=== PATIENT | female | born 1955 | race African-American/Black ===

== ENCOUNTER 2017-10-16 23:21 | Emergency (ER) | payer SELFPAY ==
[~2017-10-16] VITALS: Ht 165.1 cm; Wt 86.2 kg
[2017-10-16] MEDS ORDERED: IPRATRPIUM/ALBUTEROL 0.5/2.5MG 3 ML NEBU. ONE (23:50)
[2017-10-17 00:14] LABS: BASO # 0.1 x10^3/uL (0.0-0.2); BASO % 2 % (0-3); EOS % 3 % (0-3); HEMATOCRIT 43.6 % (36.0-47.0); HEMOGLOBIN 13.6 g/dL (12.0-15.5); LYMPH # 2.4 x10^3/uL (1.0-4.8); LYMPH % 55 % (24-48); MEAN CORPUSCULAR HEMOGLOBIN 25 pg (25-35); MEAN CORPUSCULAR HGB CONC 31 g/dL (31-37); MEAN CORPUSCULAR VOLUME 81 fL (79-100); MONO % 11 % (0-9); NEUT % 30 % (31-73); PLATELET COUNT 237 x10^3/uL (140-400); RED CELL DISTRIBUTION WIDTH 14.7 % (11.5-14.5); WHITE BLOOD COUNT 4.4 x10^3/uL (4.0-11.0)
[2017-10-17] MEDS ORDERED: IV NORMAL SALINE 1000ML BAG 1,000 ML IV SCH (00:15)
[2017-10-17] MEDS ORDERED: IPRATRPIUM/ALBUTEROL 0.5/2.5MG 3 ML NEBU. NEB ONE (00:15)
[2017-10-17] MEDS ORDERED: methylPREDNISolone SOD SUCC PF 125 MG/2 ML VIAL. IV ONE (00:15)
[2017-10-17] MEDS ORDERED: IV NORMAL SALINE 1000ML BAG 1,000 ML IV ONE (00:45)
[2017-10-17 00:54] LABS: CALCIUM 8.9 mg/dL (8.5-10.1); CREATININE 1.4 mg/dL (0.6-1.0); GFR 46.3; POTASSIUM 3.7 mmol/L (3.5-5.1)
[2017-10-17 02:00] VITALS: BP 125/61
[2017-10-17] MEDS ORDERED: AZIT250T6 PO (02:11)
[2017-10-17] MEDS ORDERED: PRED50TA PO (02:11)
[2017-10-17] MEDS ORDERED: BENZ100C PO (02:11)
--- NOTE | 2017-10-17 02:12 | PHYS DOC ---
Past Medical History Past Medical History: Arthritis, Asthma, COPD, Hypertension Past Surgical History: Hysterectomy, Tonsillectomy, Other Additional Past Surgical Histo: multiple bowel obstructions, liver biopsy Alcohol Use: Rarely Drug Use: None Adult General Chief Complaint Chief Complaint: SHORTNESS OF BREATH HPI HPI Patient is a 62 year old [f__sex] who presents with [] Review of Systems Review of Systems Constitutional: Denies fever or chills [] Eyes: Denies change in visual acuity, redness, or eye pain [] HENT: Denies nasal congestion or sore throat [] Respiratory: Denies cough or shortness of breath [] Cardiovascular: No additional information not addressed in HPI [] GI: Denies abdominal pain, nausea, vomiting, bloody stools or diarrhea [] : Denies dysuria or hematuria [] Musculoskeletal: Denies back pain or joint pain [] Integument: Denies rash or skin lesions [] Neurologic: Denies headache, focal weakness or sensory changes [] Endocrine: Denies polyuria or polydipsia [] All other systems were reviewed and found to be within normal limits, except as documented in this note. Current Medications Current Medications Current Medications Medications (Trade) Dose Ordered Sig/Trish Start Time Stop Time Status Last Admin Dose Admin Albuterol/ Ipratropium (Duoneb) 3 ml 1X ONCE 10/17/17 00:15 10/17/17 00:16 DC 10/17/17 00:11 3 ML Methylprednisolone Sodium Succinate (SOLU-Medrol 125MG VIAL) 125 mg 1X ONCE 10/17/17 00:15 10/17/17 00:16 DC 10/17/17 00:39 125 MG Sodium Chloride 1,000 ml @ 1,000 mls/hr 1X ONCE 10/17/17 00:45 10/17/17 01:44 DC 10/17/17 00:39 1,000 MLS/HR Allergies Allergies Allergies Coded Allergies Type Severity Reaction Last Updated Verified No Known Drug Allergies 01/22/14 No Physical Exam Physical Exam Constitutional: Well developed, well nourished, no acute distress, non-toxic appearance. [] HENT: Normocephalic, atraumatic, bilateral external ears normal, oropharynx moist, no oral exudates, nose normal. [] Eyes: PERRLA, EOMI, conjunctiva normal, no discharge. [] Neck: Normal range of motion, no tenderness, supple, no stridor. [] Cardiovascular:Heart rate regular rhythm, no murmur [] Lungs & Thorax: Bilateral breath sounds clear to auscultation [] Abdomen: Bowel sounds normal, soft, no tenderness, no masses, no pulsatile masses. [] Skin: Warm, dry, no erythema, no rash. [] Back: No tenderness, no CVA tenderness. [] Extremities: No tenderness, no cyanosis, no clubbing, ROM intact, no edema. [] Neurologic: Alert and oriented X 3, normal motor function, normal sensory function, no focal deficits noted. [] Psychologic: Affect normal, judgement normal, mood normal. [] Current Patient Data Vital Signs Vital Signs Date Time Temp Pulse Resp B/P (MAP) Pulse Ox O2 Delivery O2 Flow Rate FiO2 10/16/17 23:56 98 Room Air 10/16/17 23:23 98.3 69 18 119/74 (89) 98.3 Lab Values Laboratory Tests Test 10/16/17 23:32 10/17/17 00:29 White Blood Count 4.4 x10^3/uL (4.0-11.0) Red Blood Count 5.40 x10^6/uL (3.50-5.40) Hemoglobin 13.6 g/dL (12.0-15.5) Hematocrit 43.6 % (36.0-47.0) Mean Corpuscular Volume 81 fL (79-100) Mean Corpuscular Hemoglobin 25 pg (25-35) Mean Corpuscular Hemoglobin Concent 31 g/dL (31-37) Red Cell Distribution Width 14.7 % (11.5-14.5) H Platelet Count 237 x10^3/uL (140-400) Neutrophils (%) (Auto) 30 % (31-73) L Lymphocytes (%) (Auto) 55 % (24-48) H Monocytes (%) (Auto) 11 % (0-9) H Eosinophils (%) (Auto) 3 % (0-3) Basophils (%) (Auto) 2 % (0-3) Neutrophils # (Auto) 1.3 x10^3uL (1.8-7.7) L Lymphocytes # (Auto) 2.4 x10^3/uL (1.0-4.8) Monocytes # (Auto) 0.5 x10^3/uL (0.0-1.1) Eosinophils # (Auto) 0.1 x10^3/uL (0.0-0.7) Basophils # (Auto) 0.1 x10^3/uL (0.0-0.2) Sodium Level 144 mmol/L (136-145) Potassium Level 3.7 mmol/L (3.5-5.1) Chloride Level 104 mmol/L (98-107) Carbon Dioxide Level 30 mmol/L (21-32) Anion Gap 10 (6-14) Blood Urea Nitrogen 38 mg/dL (7-20) H Creatinine 1.4 mg/dL (0.6-1.0) H Estimated GFR (Cockcroft-Gault) 46.3 Glucose Level 86 mg/dL (70-99) Calcium Level 8.9 mg/dL (8.5-10.1) Troponin I Quantitative < 0.017 ng/mL (0.000-0.055) VC-Cwu-H-Type Natriuretic Peptide 153 pg/mL (0-124) H Laboratory Tests 10/16/17 23:32 Laboratory Tests 10/17/17 00:29 EKG EKG [] Radiology/Procedures Radiology/Procedures [] Course & Med Decision Making Course & Med Decision Making Pertinent Labs and Imaging studies reviewed. (See chart for details) [] Dragon Disclaimer Dragon Disclaimer This electronic medical record was generated, in whole or in part, using a voice recognition dictation system. Departure Departure Impression: Primary Impression: COPD exacerbation Additional Impression: Pneumonia Disposition: 01 HOME, SELF-CARE Condition: IMPROVED Referrals: NON,STAFF (PCP) Patient Instructions: Smoking Cessation Additional Instructions: It appears that you have a lung infection which has caused an attack of your COPD. It is never to late to stop smoking so consider this and discuss options with your doctor to make an effort in this regard. We've given you a first dose of antibiotic to cover your lung infection. A prescription for Zithromax has also been given for you to start tomorrow. Your infection may be a typical bacterial infection, or it may be an atypical bacterial infection also known as "walking pneumonia. " It's also possible that it may be the result of a viral infection however if this is the case will get better on its own. Finish prednisone as prescribed for 6 days. Use Mucinex DM [id number] to help break up mucus in for cough control. If he continued have persistent cough take Tessalon as prescribed as needed. Follow-up with your doctor tomorrow and return immediately for new severe or worsening symptoms Scripts Benzonatate (TESSALON PERLE) 100 Mg Capsule 2 CAP PO TID, #42 CAP Prov: MARYBETH HERNANDEZ MD 10/17/17 Prednisone (PREDNISONE) 50 Mg Tablet 1 TAB PO DAILY, #6 TAB Prov: MARYBETH HERNANDEZ MD 10/17/17 Azithromycin (AZITHROMYCIN TABLET) 250 Mg Tablet 1 PKG PO UD, #6 TAB Take 2 pills the first day and one pill a day for the following 4 days Prov: MARYBETH HERNANDEZ MD 10/17/17 Problem Qualifiers MARYBETH HERNANDEZ MD Oct 17, 2017 02:11
--- NOTE | 2017-10-17 08:30 | RAD ---
AP PORTABLE CHEST Clinical Indication: Shortness of air Comparison: Two-view chest 01/22/2014. Findings: Cardiac size normal. Tortuous thoracic aorta. There are diffusely increased interstitial markings. There is no pneumothorax. No pleural effusion is appreciated. There is no acute bone abnormality. Old left rib fractures. IMPRESSION: Diffusely increased interstitial markings may be due to interstitial edema or pneumonia.
--- NOTE | 2017-10-17 13:08 | EKG ---
[facility] [address] [place] [address] Test Date: 2017-10-17 Test Time: 00:20:36 Pat Name: WAYLON ABREU Department: Room: Gender: F Asset Protection Agent: : [id number] Requested By: MARYBETH HERNANDEZ Order Number: [id number] Reading MD: Manav Jung MD Measurements Intervals [place] Rate: 56 P: 44 [place]: 114 QRS: 29 QRSD: 94 T: 27 QT: 418 QTc: 406 Interpretive Statements SINUS RHYTHM NON-SPECIFIC ST/T CHANGES Electronically Signed On 10-20-2017 11:39:00 [employer] by Manav Jung MD
== END 2017-10-17 02:25 | disposition home or self-care (01) ==
LOC: ER 23:21
DX: J44.1 Chronic obstructive pulmonary disease with (acute) exacerbation (principal); J18.9 Pneumonia, unspecified organism; I10 Essential (primary) hypertension; Z90.710 Acquired absence of both cervix and uterus
CPT/HCPCS: 36415; 71010; 80048; 83880; 84484; 85025; 93005; 94250; 94640; J2930; J7030; J7620; 96361; 96374; 99285-25

== ENCOUNTER → 2018-01-01 | Outpatient (CLI) | payer BC | END | disposition home or self-care (01) | LOC: RAD 10:20 | DX: I51.7 Cardiomegaly (principal); I70.0 Atherosclerosis of aorta | CPT/HCPCS: 71046 ==

== ENCOUNTER → 2018-02-10 | Outpatient (CLI) | payer OTHER ==
[2018-02-10] MEDS: ALBUTEROL SULFATE 2.5 MG/3 ML NEBU. NEB (08:17)
== END | disposition home or self-care (01) ==
LOC: PF 07:44
DX: J44.9 Chronic obstructive pulmonary disease, unspecified (principal)
CPT/HCPCS: 94060; 94640; J7613

== ENCOUNTER → 2020-05-30 | Outpatient (CLI) | payer MEDICARE, OTHER ==
[2018-02-04 10:57] VITALS: BP 104/60
[~2020-05-30] MED LIST: ALBU2.5V14 NEB; ALPR0.5T6 PO; ALPR2TAB5 PO; ASPI-612 PO; ATOR20TA58 PO; AZIT250T6 PO; BENZ100C PO; CARV12.511 PO; FLUT1DIS3 IH; FURO40TA4 PO; LEVO500T59 PO; LISI1TAB19 PO; OXYC-411 PO; PRED50TA PO; SPIR25TA5 PO; TRAM50TA PO; ZOLP5TAB PO
--- NOTE | 2020-05-30 14:17 | PAIN ---
DATE OF SERVICE: 05/30/2020 INITIAL CONSULTATION FOR PAIN CLINIC CHIEF COMPLAINT: Low back and bilateral lower extremity pain. HISTORY OF PRESENT ILLNESS: This is a 64-year-old female who presents with history of pain in the low back, bilateral lower extremities for at least 20 years or longer. The patient reports she also has knee pain, is not being followed by any orthopedics or accountancy professor at this time. She reports she has had arthritis for multiple years, but is not taking any anti-inflammatory medications currently. She has had some in the past, but mainly just [id number] and the pain is fairly significant, it is getting worse over the past year or so in the low back, bilateral lower extremities, radiating to posterior gluteus, posterior thigh, lateral thigh, anterior thigh, medial thighs and into the lower leg, especially around the knees and the knee joints, also some pain in the upper and mid back as well. The patient reports it is getting worse. Usually, she can use heat or massage therapies. She has done physical therapy in the past, does some exercises still, but without significant improvement. The patient has not had any recent therapies. She has had some chiropractic treatment; however, which does help temporarily for a day or two. The patient reports that the pain is getting worse in her legs, that she feels fatigued, worse with standing, walking, changing positions, getting up and down, better with sitting or lying down, but awakens her from sleep generally earlier in the morning than she would but not throughout the night. The patient reports it does not affect her bowel or bladder control, but does affect her ability to walk. Right side is essentially equal to left. Not using any assistive devices, however, to ambulate such as canes or walkers. The patient has been taking oxycodone as well as tramadol, both of which do decrease the pain and is currently taking it through her primary care physician. The patient has had no diagnostic studies currently with her back or legs as well. She did have some films in 2006 showing some moderate arthritis in the knees. The patient rates her disability range of 0-10, 10 being the worst, is 0 with family home responsibilities, it is 8 with recreation, social activity, occupation and self-care, 10 with sexual behavior, 5 with life support activities. The patient describes the pain as constant, sharp, stabbing, also radiating to the lower extremities, described as a burning pain in the legs, which is new within the last few months. No overt motor loss, but significant fatigability with walking, standing, changing positions as noted. PAST MEDICAL HISTORY: Significant for COPD, cigarette smoking, congestive heart failure, hypertension, arthritis. PREVIOUS SURGERIES: Include multiple pelvic surgeries, bowel obstruction, resection x 2, previous appendectomy, hysterectomy, one previous . CURRENT MEDICATIONS: Include oxycodone, Lasix, carvedilol, albuterol, Ambien, Advair inhaler, daily baby aspirin, spironolactone, alprazolam and tramadol. ALLERGIES: THE PATIENT IS ALLERGIC TO NO KNOWN DRUG OR OTHER MEDICATIONS. FAMILY HISTORY: Significant for heart disease and hypertension. SOCIAL HISTORY: The patient does not drink alcohol, does smoke less than a pack a day and is trying to wean down. She smoked for 50 years and is trying to decrease. Denies any illegal, illicit or recreational drugs. She is single, lives locally in [place], [place] The patient reports she is currently on disability, not related to her current pain issue. REVIEW OF SYSTEMS: The patient's review of systems is positive for those items mentioned in history of present illness. All systems reviewed and otherwise negative. It is complete, full and well documented on the patient's chart. PHYSICAL EXAMINATION: VITAL SIGNS: The patient's blood pressure is 144/96, pulse 62, respirations 18, temperature 98.5 degrees Fahrenheit, height is 5 feet 5 inches, weighs 181 pounds. GENERAL: The patient is awake, alert, oriented, appropriate, very pleasant demeanor. HEENT: Shows normocephalic, atraumatic. Extraocular movements are intact and symmetrical. Oral cavity: Mucous membranes moist and pink. Dentition is intact. NECK: Shows anterior throat supple without palpable lymphadenopathy noted. Swallow reflex symmetrical. CHEST: Shows normal on inspection. Breath sounds are clear bilaterally. HEART: Shows S1, S2 clear. Patient does have some fairly significant distant wheezes; however, with expiration in the posterior lung mendez, both upper, middle and lower distribution of the mendez bilaterally without rhonchi or rales, but significant wheezing, distant once again, but present bilaterally in upper, lower and middle lung mendez bilaterally. ABDOMEN: Soft, nontender, nondistended. No palpable organomegaly is noted. No rebound or guarding demonstrated. BACK: Shows spine grossly in the midline, normal-appearing cervical lordotic curvature, slight exaggeration of thoracic kyphosis, some minor flattening of lumbar lordotic curvature. Lumbar paraspinous muscle shows symmetrical on inspection, on palpation shows some moderate tenderness diffusely bilaterally going diffusely without significant radiation in the upper, middle and lower distribution of paraspinous muscles bilaterally, but are symmetrical, no evidence of atrophy, hypertrophy, no trigger points or radiation of pain, no tenderness over the spinous processes, sacrum or sacroiliac regions. The patient has good rotational motion of lumbar spine, both laterally as well as extension and flexion greater than 10 degrees right and left as well as extension greater than 10 degrees, forward flexion 45 degrees without significant increase in pain. EXTREMITIES: The patient's lower extremities show deep tendon reflexes at 1+ in the patellar and tendo calcaneus tendons. Motor exam is approximately 4 on a scale of 5, but equal and symmetrical, right and left with dorsiflexion, extension, quadriceps and hamstring flexion. Peripheral pulses are 1+ posterior tibial. The patient does have approximately 2+ edema in the bilateral ankles extending two-thirds of the distance of the knee bilaterally and is fairly tender with even light palpation when demonstrating the edema. Peripheral pulses; however, are 1+ posterior tibial. Lower extremities are warm and dry to touch, equal in color and appearance. Straight leg raise noted to be positive bilaterally about 30-35 degrees, decreased with knee flexion. Gaenslen's and Jah's maneuvers are grossly negative bilaterally also. The patient is able to stand, stand on her toes and difficulty or loss her balance when trying to stand along with all of her weight on one foot or the other. Walks with a slight shuffling gait, does not appear to favor the right or left lower extremity significantly, but is cautious about her standing and takes guarding maneuvers when she is standing from a seated position using the arms of the chair to raise test to stand as well. Not using any assistive devices, however, such as canes or walkers to ambulate. SKIN: Shows warm and dry, good turgor. No edema. No sores, rashes or bruising throughout. IMPRESSION: 1. This is a 64-year-old female with a long history of 20+ years of low back pain, bilateral lower extremity pain now with some weakness and a burning sensation, which is fairly new in the lower extremities in a radicular pattern bilaterally. 2. Chronic obstructive pulmonary disease. 3. Congestive heart failure. 4. Hypertension. 5. Arthritis. 6. Cigarette smoking. PLAN: Options were discussed with the patient including conservative medical managements, physical therapies and interventional techniques. She would like to pursue anything that will help her pain. We discussed getting an MRI scan of the lumbar spine to better differentiate any pathology that may be helpful explaining her radicular symptoms. We will make arrangements for the MRI scan. Once this is obtained, we will have her return and we will review the results and discuss other options at that time. The patient understands and agrees, will follow up as scheduled. CHIARA HUTTON MD DR: JAKOB/joey JOB#: [id number] / [id number] [address]phanie [address] Dr[address]
== END | disposition home or self-care (01) ==
LOC: PNCL 10:29
PROVIDERS: ATTEND Anesthesiology
DX: M54.5 Low back pain (principal); I11.0 Hypertensive heart disease with heart failure; I50.9 Heart failure, unspecified; J44.9 Chronic obstructive pulmonary disease, unspecified; F17.210 Nicotine dependence, cigarettes, uncomplicated; M19.90 Unspecified osteoarthritis, unspecified site; Z79.899 Other long term (current) drug therapy; Z98.890 Other specified postprocedural states
CPT/HCPCS: G0463